=== PATIENT | male | born 1965 | race Caucasian/White ===

== ENCOUNTER 2017-06-20 08:45 | Day surgery (SDC) | payer OTHER ==
[2017-06-20] MEDS ORDERED: Lactated Ringers 1,000 ML IV SCH (09:15)
[2017-06-20] MEDS ORDERED: fentaNYL 100 MCG/2 ML SDV ONE (09:57)
[2017-06-20] MEDS ORDERED: Midazolam 1 MG/ML 2 ML SDV ONE (09:57)
[2017-06-20] MEDS ORDERED: Propofol 200 MG/20 ML SDV ONE (09:57)
[2017-06-20 12:15] VITALS: BP 120/75
--- NOTE | 2017-06-20 12:51 | OR ---
DATE OF PROCEDURE: 06/20/2017 PREOPERATIVE DIAGNOSIS: History of colon polyps. POSTOPERATIVE DIAGNOSES: Diverticulosis, history of colon polyps. PROCEDURE: Colonoscopy to the cecum. SURGEON: Maynor Fernando MD ANESTHESIA: IV anesthesia with monitored anesthesia care. INDICATION: This 52-year-old white male is referred for a colonoscopy. He has a history of colon polyps. He says his last colonoscopic exam was done 3 years ago. I counseled him for the procedure including risks and alternatives, and he gave his informed consent to proceed. DESCRIPTION OF PROCEDURE: The patient was placed in the left lateral decubitus position. IV anesthesia was administered by the Anesthesia Service. Time-out was held. A rectal exam was performed, which was unremarkable. The flexible video Olympus colonoscope was introduced through his anus, up his rectum, and out his colon all the way to the cecum. Once the cecum was reached, the scope was slowly withdrawn, examining the mucosa throughout. We did see multiple left and sigmoid colon diverticula. There was no bleeding or inflammation associated with any of them. No neoplastic lesions were encountered. The scope was retroflexed in the rectum with the distal rectum appearing unremarkable. The scope was straightened and removed. He tolerated the procedure well. Maynor Fernando MD /[id number] MTDD
== END 2017-06-20 12:10 | disposition home or self-care (01) ==
LOC: JP.SDS 08:45
PROVIDERS: ATTEND Surgery
DX: Z12.11 Encounter for screening for malignant neoplasm of colon (principal); K57.30 Diverticulosis of large intestine without perforation or abscess without bleeding; I10 Essential (primary) hypertension; E11.9 Type 2 diabetes mellitus without complications; E78.5 Hyperlipidemia, unspecified; E66.9 Obesity, unspecified; Z86.010 Personal history of colon polyps
CPT/HCPCS: 45378; J2250; J2704; J3010; J7120

== ENCOUNTER → 2022-08-15 | Day surgery (SDC) | payer OTHER ==
[~2022-08-15] MED LIST: Midazolam 1 MG/ML 2 ML SDV ONE; Propofol 200 MG/20 ML SDV ONE; fentaNYL 100 MCG/2 ML SDV ONE
== END ==
LOC: JP.SDS 06:00
PROVIDERS: ATTEND Family Medicine
DX: Z12.11 Encounter for screening for malignant neoplasm of colon (principal); D12.4 Benign neoplasm of descending colon; E11.9 Type 2 diabetes mellitus without complications; I10 Essential (primary) hypertension; E78.5 Hyperlipidemia, unspecified; Z86.010 Personal history of colon polyps
CPT/HCPCS: 45380; 88305; J2250; J2704; J3010